=== PATIENT | female | born 1995 | race Caucasian/White ===

== ENCOUNTER 2019-01-15 19:46 | Emergency (ER) | payer MEDICAID ==
[~2019-01-15] VITALS: Ht 157.5 cm; Wt 55.3 kg
[2019-01-15 20:01] VITALS: Ht 157.5 cm; Wt 55.3 kg
[2019-01-15 22:30] VITALS: BP 127/81
== END 2019-01-15 22:30 | disposition home or self-care (01) ==
LOC: ED 19:46
DX: J98.01 Acute bronchospasm (principal); Z88.6 Allergy status to analgesic agent
CPT/HCPCS: J2930; J7613; J7644